=== PATIENT | male | born 1970 | race African-American/Black ===

== ENCOUNTER 2016-04-12 17:25 | Emergency (ER) | payer OTHER ==
[2016-04-12 17:40] VITALS: BP 135/86; PULSE 88; TEMP 98.1; BMI 28.4
== END 2016-04-12 19:01 | disposition left against medical advice (07) ==
LOC: JERFT 17:25
DX: Z53.21 Procedure and treatment not carried out due to patient leaving prior to being seen by health care provider (principal)
CPT/HCPCS: 99281-25